=== PATIENT | male | born 1970 ===

== ENCOUNTER 2024-06-30 14:54 | Inpatient (IN) | payer SELFPAY ==
[~2024-06-30] VITALS: Ht 162.6 cm; Wt 79.7 kg
--- NOTE | 2024-06-30 15:04 | ECG ---
[facility] Test Date: 2024-06-30 Test Time: 15:01:01 Pat Name: ARNIE LEE Department: ER Room: 0245T Gender: M [employer] Truck Crane Operator: ANGELIQUE : 1970 Requested By: MEGGAN RODRÍGUEZ Order Number: [id number] Reading MD: Shaan Mason Measurements Intervals [place] Rate: 104 P: 56 [place]: 133 QRS: 57 QRSD: 94 T: 16 QT: 349 QTc: 459 Interpretive Statements Sinus tachycardia Baseline wander in lead(s) III,aVF Electronically Signed On 07-03-2024 8:50:58 PST by Shaan Mason Please click the below link to view image of tracing.
[2024-06-30 15:16] LABS: Basophils # (auto) 0 10 ^3/uL (0-0.2); Basophils % (auto) 0.3 % (0.0-2.0); Eosinophils # (auto) 0.1 10 ^3/uL (0-0.8); Hematocrit 52.9 % (41.0-53.0); Hemoglobin 17.9 g/dL (13.5-17.5); Lymphocytes # (auto) 2.4 10 ^3/uL (0.4-5.4); Lymphocytes % (auto) 24.9 % (10.0-50.0); Mean Corpuscular Hemoglobin 31.5 pg (28.0-32.0); Mean Corpuscular Hgb Conc. 33.8 g/dL (32.0-36.0); Mean Corpuscular Volume 93.1 fL (80.0-100.0); Monocytes # (auto) 0.4 10 ^3/uL (0-1.3); Monocytes % (auto) 4.5 % (0.0-12.0); Neutrophils # (auto) 6.6 10 ^3/uL (1.6-8.6); Neutrophils % (auto) 69.3 % (37.0-80.0); Nucleated Red Blood Cells % 0.1 %; Platelet Count (auto) 191 10^3/uL (140-450); Red Blood Cells 5.68 10^6/uL (4.5-5.90); Red Cell Distribution Width 13.3 % (11.8-14.3); White Blood Cell 9.6 10^3/uL (4.4-10.8)
--- NOTE | 2024-06-30 15:23 | DVH ---
CLINICAL INFORMATION: 54 years old, Male; chest pain. TECHNIQUE: Single AP portable chest radiograph was obtained. COMPARISON: None FINDINGS: Lungs: Clear. Cardiac: Heart size is within normal limits. Pulmonary vasculature: Unremarkable. Mediastinum/romaine: Unremarkable. Bones: No acute osseous abnormality identified. Other: No other significant findings. IMPRESSION: No evidence of acute disease in the chest.
[2024-06-30 15:36] LABS: Alanine Aminotransferase 23 U/L (7-40); Albumin 4.7 g/dL (3.2-4.8); Anion Gap 8 (5-15); Aspartate Aminotransferase 20 U/L (13-40); BUN/Creatinine Ratio 18.6 (10.0-20.0); Bilirubin, Total 0.8 mg/dL (0.2-1.0); Blood Urea Nitrogen 16 mg/dL (9-23); Calcium 9.8 mg/dL (8.7-10.4); Carbon Dioxide 29 mmol/L (20-31); Chloride 99 mmol/L (98-107); Magnesium 1.9 mg/dL (1.6-2.6); Potassium 4.2 mmol/L (3.5-5.1); Sodium 136 mmol/L (136-145); Total Protein 6.6 g/dL (5.7-8.2)
[2024-06-30 15:42] LABS: Alkaline Phosphatase 118 U/L (46-116); Glucose 322 mg/dL (74-106)
--- NOTE | 2024-06-30 16:04 | ED.PDOC ---
History of Present Illness HPI Comments 54-year-old male presents with a chief complaint of chest pain x 4 weeks intermittently. Patient reports that his pain is localized to his left chest wall, radiates down his arms, is intermittent in timing, and rates his pain a 6/10. Patient denies any injuries or trauma prior to onset of symptoms. Patient mentions that the pain started off spontaneously and he has not seen a doctor for this in the past x 4 weeks. No other symptoms or modifying factors present at this time. Chief Complaint: Chest Pain Time Seen by MD: 15:50 Primary Care Provider: none Reviewed Notes: Medications, Allergies Allergies: Coded Allergies: NO KNOWN ALLERGIES (Unverified , 06/30/24) Information Source: Patient Mode of Arrival: Ambulatory Severity: Moderate Timing: Weeks Duration: Intermittent Prehospital treatment: None Past Medical History PAST MEDICAL HISTORY: Denies Surgical History: Denies all surgeries Family History Family History: Reviewed,noncontributory to illness Social History Smoker: Non-Smoker Alcohol: Denies ETOH Use Drugs: Denies Drug Use Lives In: Home Constitutional: denies: chills, diaphoresis, fatigue, fever, malaise, sweats, weakness, others EENTM: denies: blurred vision, double vision, ear bleeding, ear discharge, ear drainage, ear pain, ear ringing, eye pain, eye redness, hearing loss, mouth pain, mouth swelling, nasal discharge, nose bleeding, nose congestion, nose pain, photophobia, tearing, throat pain, throat swelling, voice changes, others Respiratory: denies: cough, hemoptysis, orthopnea, SOB at rest, shortness of breath, SOB with excertion, stridor, wheezing, others Cardiovascular: reports: chest pain; denies: dizzy spells, diaphoresis, Dyspnea on exertion, edema, irregular heart beat, left arm pain, lightheadedness, palpitations, PND, syncope, others Gastrointestinal: denies: abdomen distended, abdominal pain, blood streaked bowels, constipated, diarrhea, dysphagia, difficulty swallowing, hematemesis, melena, nausea, poor appetite, poor fluid intake, rectal bleeding, rectal pain, vomiting, others Genitourinary: denies: burning, dysuria, flank pain, frequency, hematuria, incontinence, penile discharge, penile sore, pain, testicle pain, testicle swelling, urgency, others Neurological: denies: dizziness, fainting, headache, left sided numbness, left sided weakness, numbness, paresthesia, pre-existing deficit, right sided numbness, right sided weakness, seizure, speech problems, tingling, tremors, weakness, others Musculoskeletal: denies: back pain, gout, joint pain, joint swelling, muscle pain, muscle stiffness, neck pain, others Integumetry: denies: bruises, change in color, change in hair/nails, dryness, laceration, lesions, lumps, rash, wounds, others Allergic/Immunocompromised: denies: Difficulty Healing, Frequent Infections, Hives, Itching, others Hematologic/Lymphatic: denies: anemia, blood clots, easy bleeding, easy bruising, swollen glands, others Endocrine: denies: excessive hunger, excessive sweating, excessive thirst, excessive urination, flushing, intolerance to cold, intolerance to heat, unexplained weight gain, unexplained weight loss, others Psychiatric: denies: anxiety, bipolar disorder, depression, hopeless, panic disorder, schizophrenia, sleepless, suicidal, others All Other Systems: Reviewed and Negative Physical Exam General Appearance: No Apparent Distress, Normal HEENT: Normal ENT Inspection, Pharynx Normal, TMs Normal Neck: Full Range of Motion, Non-Tender, Normal, Normal Inspection Respiratory: Chest Non-Tender, Lungs Clear, No Accessory Muscle Use, No Respiratory Distress, Normal Breath Sounds Cardiovascular: No Edema, No JVD, No Murmur, No Gallop, Normal Peripheral Pulses, Regular Rate/Rhythm Breast Exam: Deferred Gastrointestinal: No Organomegaly, Non Tender, No Pulsatile Mass, Normal Bowel Sounds, Soft Genitalia: Deferred Pelvic: Deferred Rectal: Deferred Extremities: No calf tenderness, Normal capillary refill, Normal inspection, Normal range of motion, Non-tender, No pedal edema Musculoskeletal : Apperance: Normal Neurologic: Alert, network project manager II-XII nml as Tested, No Motor Deficits, Normal Affect, Normal Mood, No Sensory Deficits Cerebellar Function: Normal Reflexes: Normal Skin: Dry, Normal Color, Warm Lymphatic: No Adenopathy Was a procedure done? Was a procedure done?: No Differential Dx Considerations may include: Differential diagnosis includes but not limited to: angina, DKA, hyperosmolar, myocardial infarction, pulmonary embolus, pleurisy, musculoskeletal etiology and others X-Ray, Labs, Meds, VS Vital Signs Date Time Temp Pulse Resp B/P (MAP) Pulse Ox O2 Delivery O2 Flow Rate FiO2 06/30/24 15:57 92 06/30/24 15:05 98.2 110 16 152/97 (115) 95 06/30/24 15:01 104 Lab Test 06/30/24 15:56 06/30/24 15:06 Range/Units Troponin I High Sensitivity < 3 L < 3 L </=54 ng/L White Blood Count 9.6 4.4-10.8 10^3/uL Red Blood Count 5.68 4.5-5.90 10^6/uL Hemoglobin 17.9 H 13.5-17.5 g/dL Hematocrit 52.9 41.0-53.0 % Mean Corpuscular Volume 93.1 80.0-100.0 fL Mean Corpuscular Hemoglobin 31.5 28.0-32.0 pg Mean Corpuscular Hemoglobin Concent 33.8 32.0-36.0 g/dL Red Cell Distribution Width 13.3 11.8-14.3 % Platelet Count 191 140-450 10^3/uL Mean Platelet Volume 9.3 6.9-10.8 fL Neutrophils (%) (Auto) 69.3 37.0-80.0 % Lymphocytes (%) (Auto) 24.9 10.0-50.0 % Monocytes (%) (Auto) 4.5 0.0-12.0 % Eosinophils (%) (Auto) 1.0 0.0-7.0 % Basophils (%) (Auto) 0.3 0.0-2.0 % Neutrophils # (Auto) 6.6 1.6-8.6 10 ^3/uL Lymphocytes # (Auto) 2.4 0.4-5.4 10 ^3/uL Monocytes # (Auto) 0.4 0-1.3 10 ^3/uL Eosinophils # (Auto) 0.1 0-0.8 10 ^3/uL Basophils # (Auto) 0 0-0.2 10 ^3/uL Nucleated Red Blood Cells 0.1 % Sodium Level 136 136-145 mmol/L Potassium Level 4.2 3.5-5.1 mmol/L Chloride Level 99 98-107 mmol/L Carbon Dioxide Level 29 20-31 mmol/L Anion Gap 8 5-15 Blood Urea Nitrogen 16 9-23 mg/dL Creatinine 0.86 0.700-1.30 mg/dL Glomerular Filtration Rate Calc 104 >90 mL/min BUN/Creatinine Ratio 18.6 10.0-20.0 Serum Glucose 322 H 74-106 mg/dL Calcium Level 9.8 8.7-10.4 mg/dL Magnesium Level 1.9 1.6-2.6 mg/dL Total Bilirubin 0.8 0.2-1.0 mg/dL Aspartate Amino Transferase (AST) 20 13-40 U/L Alanine Aminotransferase (ALT) 23 7-40 U/L Alkaline Phosphatase 118 H 46-116 U/L B-Type Natriuretic Peptide 16.15 0-100 pg/mL Total Protein 6.6 5.7-8.2 g/dL Albumin 4.7 3.2-4.8 g/dL Time of 1ST Reevaluation: 16:20 Reevaluation 1ST: Unchanged Time of 2ND Reevaluation: 16:56 Reevaluation 2ND: Unchanged Patient Education/Counseling: Diagnosis, Treatment, Prognosis Family Education/Counseling: Diagnosis, Treatment, Prognosis Departure 1 Departure Time of Disposition: 16:51 Impression: Primary Impression: New onset type 2 diabetes mellitus Additional Impressions: Intermediate coronary syndrome Hyperglycemia Disposition: 09 ADMITTED INPATIENT Admit to: Tele Condition: Guarded Discharged With: Self Critical Care Note Critical Care Time?: Yes (45 min-critical care time only) Critical care comment: Total critical care time: Approximately 36 minutes Due to a high probability of clinically significant, life threatening deterioration, the patient required my highest level of preparedness to intervene emergently and I personally spent this critical care time directly and personally managing the patient. This critical care time included obtaining a history; examining the patient; pulse oximetry; ordering and review of studies; arranging urgent treatment with development of a management plan; evaluation of patient's response to treatment; frequent reassessment; and, discussions with other providers. This critical care time was performed to assess and manage the high probability of imminent, life-threatening deterioration that could result in multi-organ failure. It was exclusive of separately billable procedures and treating other patients. Stability Stability form required: No I personally scribed for MEGGAN RODRÍGUEZ MD ([email or web address]) on 06/30/24 at 16:04. Electronically submitted by Jamar Plata ([email or web address]). MEGGAN RODRÍGUEZ MD Jun 30, 2024 16:04
[2024-06-30 17:00] VITALS: PULSE 101; RESP 18; O2SAT 97
[2024-06-30] MEDS: SODIUM CHLORIDE 0.9% 1,000 ML IV ONE (17:10)
[2024-06-30] MEDS: ASPirin-EC 81 mg tab PO ONE (17:11)
[2024-06-30] MEDS: InsuLIN REG 1unit/0.01ml Soln (100units/ml) IV ONE (17:11)
[2024-06-30] MEDS ORDERED: NITROGLYCERIN 0.4 MG SL TAB SL PRN (19:15)
[2024-06-30] MEDS ORDERED: ONDANSETRON HCL 4 MG/2 ML VIAL IV PRN (19:15)
[2024-06-30] MEDS ORDERED: DEXTROSE (50%) 50ML SYRG IV PRN (19:15)
[2024-06-30] MEDS ORDERED: MORPHINE SULFATE INJ 2 MG/ml SYRG IV PRN (19:15)
--- NOTE | 2024-06-30 20:50 | DVHHP2 ---
History of Present Illness Reason for Visit: Chest pain History of Present Illness 54-year-old male presents for evaluation of chest pain. The patient reports a four week history of left-sided sharp chest pain that radiates to his left arm causing numbness. He states that his symptoms were intermittent. He states that today symptoms became more constant and severe. Denies shortness or breath no nausea or vomiting. Currently rates the pain at 5/10 intensity. No other acute complaints reported. Past Medical History Denies Past Surgical History Denies Family History Noncontributory Smoke: No ALCOHOL: none Drugs: None Lives: with Family Review of Systems Review of Systems Review of systems are currently negative otherwise addressed in HPI Allergies: Coded Allergies: NO KNOWN ALLERGIES (Unverified , 06/30/24) Medications Current Medications Medications Dose Ordered Sig/Matt Route Start Time Stop Time Status Last Admin Dose Admin Diagnostic Test (Pha) 1 strip ACHS 06/30/24 22:00 Insulin Human Regular ACHS SC 06/30/24 22:00 Dextrose 50 ml UD PRN IV 06/30/24 19:15 Ondansetron HCl 4 mg Q4HP PRN IV 06/30/24 19:15 Acetaminophen 650 mg Q6HP PRN PO 06/30/24 19:15 Nitroglycerin 0.4 mg Q5MINP PRN SL 06/30/24 19:15 Morphine Sulfate 2 mg Q30M PRN IV 06/30/24 19:15 Exam Vital Signs Vital Signs Date Time Temp Pulse Resp B/P (MAP) Pulse Ox O2 Delivery O2 Flow Rate FiO2 06/30/24 19:45 97.9 92 16 141/90 (107) 97 97.9 06/30/24 18:42 Room Air 06/30/24 17:00 0 21 Exam Gen: 54-year-old male in mild distress Skin: Warm, dry, normal color and texture, no rash. HEENT: Normocephalic atraumatic, mucous membranes moist and pink. Neck: Cervical and supraclavicular nodes normal without enlargement, trachea is midline, thyroid gland is normal without masses. Pulmonary: Diminished breath sounds Cardiac: Regular rate and rhythm. No murmur Abdomen: Soft, nontender, nondistended, bowel sounds present all 4 quadrants, no guarding, no rigidity, no organomegaly. Extremities: No cyanosis, clubbing, no edema Neuro: Cranial nerves II through XII grossly intact, normal affect and speech, no focal motor deficits. Labs/Xrays ORDERING PHYSICIAN: MEGGAN RODRÍGUEZ MD PROCEDURE(s): CXRP - CHEST PORTABLE REASON: CP ORDER NUMBER(s): [id number], ACCESSION NUMBER(s): [id number] CLINICAL INFORMATION: 54 years old, Male; chest pain. TECHNIQUE: Single AP portable chest radiograph was obtained. COMPARISON: None FINDINGS: Lungs: Clear. Cardiac: Heart size is within normal limits. Pulmonary vasculature: Unremarkable. Mediastinum/romaine: Unremarkable. Bones: No acute osseous abnormality identified. Other: No other significant findings. IMPRESSION: No evidence of acute disease in the chest. Labs Test 06/30/24 17:07 06/30/24 15:56 06/30/24 15:06 Range/Units POC Glucose 366 H 70-106 mg/dl Troponin I High Sensitivity < 3 L </=54 ng/L White Blood Count 9.6 4.4-10.8 10^3/uL Red Blood Count 5.68 4.5-5.90 10^6/uL Hemoglobin 17.9 H 13.5-17.5 g/dL Hematocrit 52.9 41.0-53.0 % Mean Corpuscular Volume 93.1 80.0-100.0 fL Mean Corpuscular Hemoglobin 31.5 28.0-32.0 pg Mean Corpuscular Hemoglobin Concent 33.8 32.0-36.0 g/dL Red Cell Distribution Width 13.3 11.8-14.3 % Platelet Count 191 140-450 10^3/uL Mean Platelet Volume 9.3 6.9-10.8 fL Neutrophils (%) (Auto) 69.3 37.0-80.0 % Lymphocytes (%) (Auto) 24.9 10.0-50.0 % Monocytes (%) (Auto) 4.5 0.0-12.0 % Eosinophils (%) (Auto) 1.0 0.0-7.0 % Basophils (%) (Auto) 0.3 0.0-2.0 % Neutrophils # (Auto) 6.6 1.6-8.6 10 ^3/uL Lymphocytes # (Auto) 2.4 0.4-5.4 10 ^3/uL Monocytes # (Auto) 0.4 0-1.3 10 ^3/uL Eosinophils # (Auto) 0.1 0-0.8 10 ^3/uL Basophils # (Auto) 0 0-0.2 10 ^3/uL Nucleated Red Blood Cells 0.1 % Sodium Level 136 136-145 mmol/L Potassium Level 4.2 3.5-5.1 mmol/L Chloride Level 99 98-107 mmol/L Carbon Dioxide Level 29 20-31 mmol/L Anion Gap 8 5-15 Blood Urea Nitrogen 16 9-23 mg/dL Creatinine 0.86 0.700-1.30 mg/dL Glomerular Filtration Rate Calc 104 >90 mL/min BUN/Creatinine Ratio 18.6 10.0-20.0 Serum Glucose 322 H 74-106 mg/dL Hemoglobin A1c 11.1 H <5.7 % A1C Calcium Level 9.8 8.7-10.4 mg/dL Magnesium Level 1.9 1.6-2.6 mg/dL Total Bilirubin 0.8 0.2-1.0 mg/dL Aspartate Amino Transferase (AST) 20 13-40 U/L Alanine Aminotransferase (ALT) 23 7-40 U/L Alkaline Phosphatase 118 H 46-116 U/L B-Type Natriuretic Peptide 16.15 0-100 pg/mL Total Protein 6.6 5.7-8.2 g/dL Albumin 4.7 3.2-4.8 g/dL Assessment/Plan Assessment/Plan Assessment Chest pain out ACS New onset diabetes mellitus Plan Admit the patient to [facility] to the hospitalist Cardiology consultation Echocardiogram pending Continue treatment per orders. Plan discussed with: Patient My Orders Orders - JOANNA WICK Procedure Category Date Status Time Consistent DIET 07/01/24 Transmitted [facility]Diabetes Breakfast Basic Metabolic Panel LAB 07/01/24 Verified 04:00 Glucose Blood PHA 06/30/24 In Process (Accu-Chek Comfort 22:00 Insulin R (Human) PHA 06/30/24 In Process (Insulin R) 22:00 Dextrose 50% Syringe PHA 06/30/24 In Process 19:15 Admit ADMIT 06/30/24 Transmitted 19:06 Ondansetron Hcl PHA 06/30/24 In Process (Zofran) 19:15 Echo 2d Mode Cardiac US 06/30/24 Logged DOP 19:06 Condition: Stable [facility] 06/30/24 In Process 19:06 Acetaminophen Tablet [facility] 06/30/24 In Process (Tylenol Tablet) 19:15 Bedrest With Bathroom [facility] 06/30/24 In Process Privileg 19:06 Nitroglycerin [facility] 06/30/24 In Process Sublingual (Ntrostat 19:15 Morphine Sulfate PH[facility] 06/30/24 In Process Injection 19:15 Stat Ekg For Chest [facility] 06/30/24 In Process Pain 19:06 Notify Md Of Changes [facility] 06/30/24 In Process From Base 19:06 Line Service Attendant For [facility] 06/30/24 In Process 24 Hours 19:06 Emergency Dysrhythmia [facility] 06/30/24 In Process Protocol 19:06 Rhythm Strips Once [facility] 06/30/24 In Process Every Shift 19:06 Oxygen By Nasal RT 06/30/24 Transmitted Cannula 19:06 Date of Service: Jun 30, 2024 Billing Provider: JOANNA WICK Common Visit Codes: [id number] INP/OBS CARE (HIGH) JOANNA WICK Jun 30, 2024 20:50
[2024-06-30] MEDS: ACCU-CHEK COMFORT CURVE STRIP VI SCH (22:33)
[2024-06-30] MEDS: InsuLIN REG 1unit/0.01ml Soln (100units/ml) SC SCH (22:34)
[2024-06-30 23:09] VITALS: BP 126/81; PULSE 83; RESP 18; TEMP 97.6; O2SAT 97
[2024-07-01] VITALS (8 sets, daily range): BP systolic 99–126; BP diastolic 57–81; PULSE 83–99; RESP 16–19; TEMP 97.6–99; O2SAT 94–97
[2024-07-01 07:24] LABS: Chloride 104 mmol/L (98-107); Potassium 3.9 mmol/L (3.5-5.1); Sodium 138 mmol/L (136-145)
[2024-07-01 07:25] LABS: Anion Gap 5 (5-15); Calcium 9.2 mg/dL (8.7-10.4); Carbon Dioxide 29 mmol/L (20-31)
[2024-07-01 07:30] LABS: BUN/Creatinine Ratio 14.7 (10.0-20.0); Blood Urea Nitrogen 11 mg/dL (9-23)
[2024-07-01 07:42] LABS: Glucose 224 mg/dL (74-106)
--- NOTE | 2024-07-01 09:42 | ECG ---
[facility] Test Date: 2024-06-30 Test Time: 15:57:37 Pat Name: ARNIE LEE Department: ER Room: 0245T A Gender: M Respiratory Therapist: SAVITA : 1970 Requested By: MEGGAN RODRÍGUEZ Order Number: [id number] Reading MD: Shaan Mason Measurements Intervals [place] Rate: 92 P: 73 [place]: 139 QRS: 77 QRSD: 87 T: 17 QT: 341 QTc: 422 Interpretive Statements Sinus rhythm Electronically Signed On 07-03-2024 8:51:10 PST by Shaan Mason Please click the below link to view image of tracing.
[2024-07-01] MEDS: ACETAMINOPHEN 325 MG TAB PO PRN (10:01)
--- NOTE | 2024-07-01 12:19 | DVHSR ---
APPROVED REPORT EXAM: Two-dimensional and M-mode echocardiogram with Doppler and color Doppler. Blood Pressure: 124/75 mmHg INDICATION Chest Pain RISK FACTORS Height: 5'4", Weight: 175 DIMENSIONS LVDd4.2 (3.8-5.7cm)LA (2D)4.0 (1.9-4.0cm)Aortic Root (2.0-3.7cm) LVDs2.9 (2.5-4.0cm)LA (MM) (1.9-4.0cm)Aortic Cusp Exc (1.5-2.0cm) EF (%) 60.0 (55-70%)Rt. Atrium (1.9-4.0cm)Asc. Aorta cm Mitral Valve MitralMitral Stenosis E/A ratio0.02D MVAcm2 Aortic Valve Aortic ValveAortic Stenosis V10.91m/Ml Mean GR.4mmHg V21.20m/Ml Peak GR.6mmHg LVOT Diameter2.0 (1.8-2.4cm)Doppler AVA2.38cm2 AI P 1/2 Zxfu022.90ms LEFT VENTRICLE The left ventricle is of normal size. Wall thickness is likely normal. Ejection fraction is normal and is estimated at 60-65%. There is no gross wall motion abnormalities but endocardial definition i s suboptimal. Diastolic function is not well assessed. RIGHT VENTRICLE Not well visualized. Likely of normal size and systolic function. ATRIA Both atria are likely of normal size. Interatrial septum appears to be normal. MITRAL VALVE Normal structure and function. No significant mitral regurgitation. PULMONIC VALVE Not visualized. TRICUSPID VALVE Not well visualized. PA systolic pressure isn't adequately estimated. AORTIC VALVE Not well visualized. There is trace regurgitation. No evidence of stenosis. GREAT VESSELS Not well visualized. PERICARDIAL EFFUSION No significant effusion. IVC is not visualized. Other Information Quality : Technically LimitedRhythm : Technically limited study due to body habitus. Conclusion The study is technically limited. Normal left ventricular size and systolic function. Ejection fraction is estimated at 60-65%. Likely normal right ventricular size and systolic function. No evidence of hemodynamically significant valvular disease. No significant pericardial effusion. PA systolic pressure isn't adequately estimated.
[2024-07-01] MEDS ORDERED: SITA50TA28 PO ×2 (13:30→18:47)
--- NOTE | 2024-07-01 17:12 | DVHDSRES ---
Discharge Summary Date of Admission Resident Creating Document: ILSA AVLAREZ RESIDENT Jun 30, 2024 at 19:06 Date of Discharge: Jul 01, 2024 Admitting Diagnosis chest pain ruled out ACS Labs/Diagnostic Data: Laboratory Results Test 07/01/24 11:48 07/01/24 06:32 06/30/24 15:56 06/30/24 15:06 POC Glucose 266 mg/dl (70-106) Sodium Level 138 mmol/L (136-145) Potassium Level 3.9 mmol/L (3.5-5.1) Chloride Level 104 mmol/L (98-107) Carbon Dioxide Level 29 mmol/L (20-31) Anion Gap 5 (5-15) Blood Urea Nitrogen 11 mg/dL (9-23) Creatinine 0.75 mg/dL (0.700-1.30) Glomerular Filtration Rate Calc 108 mL/min (>90) BUN/Creatinine Ratio 14.7 (10.0-20.0) Serum Glucose 224 mg/dL (74-106) Calcium Level 9.2 mg/dL (8.7-10.4) Troponin I High Sensitivity < 3 ng/L (</=54) White Blood Count 9.6 10^3/uL (4.4-10.8) Red Blood Count 5.68 10^6/uL (4.5-5.90) Hemoglobin 17.9 g/dL (13.5-17.5) Hematocrit 52.9 % (41.0-53.0) Mean Corpuscular Volume 93.1 fL (80.0-100.0) Mean Corpuscular Hemoglobin 31.5 pg (28.0-32.0) Mean Corpuscular Hemoglobin Concent 33.8 g/dL (32.0-36.0) Red Cell Distribution Width 13.3 % (11.8-14.3) Platelet Count 191 10^3/uL (140-450) Mean Platelet Volume 9.3 fL (6.9-10.8) Neutrophils (%) (Auto) 69.3 % (37.0-80.0) Lymphocytes (%) (Auto) 24.9 % (10.0-50.0) Monocytes (%) (Auto) 4.5 % (0.0-12.0) Eosinophils (%) (Auto) 1.0 % (0.0-7.0) Basophils (%) (Auto) 0.3 % (0.0-2.0) Neutrophils # (Auto) 6.6 10 ^3/uL (1.6-8.6) Lymphocytes # (Auto) 2.4 10 ^3/uL (0.4-5.4) Monocytes # (Auto) 0.4 10 ^3/uL (0-1.3) Eosinophils # (Auto) 0.1 10 ^3/uL (0-0.8) Basophils # (Auto) 0 10 ^3/uL (0-0.2) Nucleated Red Blood Cells 0.1 % Hemoglobin A1c 11.1 % A1C (<5.7) Magnesium Level 1.9 mg/dL (1.6-2.6) Total Bilirubin 0.8 mg/dL (0.2-1.0) Aspartate Amino Transferase (AST) 20 U/L (13-40) Alanine Aminotransferase (ALT) 23 U/L (7-40) Alkaline Phosphatase 118 U/L (46-116) B-Type Natriuretic Peptide 16.15 pg/mL (0-100) Total Protein 6.6 g/dL (5.7-8.2) Albumin 4.7 g/dL (3.2-4.8) Other Laboratory Tests 07/01/24 06:32 06/30/24 15:06 Brief Hx & Hospital Course: A 54-year-old male with a BMI of 30.2 kg/m presented with a four-week history of left-sided, sharp chest pain radiating to the left arm, associated with numbness, relieved with movement. No associated shortness of breath, nausea, or vomiting was reported. His symptoms acutely worsened on the day of admission. Laboratory evaluation revealed new-onset diabetes mellitus. An echocardiogram was performed, showing a technically limited study due to body habitus but revealed a normal ejection fraction (EF) of 6065%, no significant valvular abnormalities, and no pericardial effusion. ACS (acute coronary syndrome) was ruled out during hospitalization, ekg and troponins normal. Insulin therapy and glucose control measures were initiated. The patient was managed with supportive care and appropriate monitoring during his hospital stay. Discharge Plan: The patient is being discharged in stable condition with follow-up instructions to continue monitoring glucose levels and outpatient management of new-onset diabetes mellitus. He was prescribed Janumet for glycemic control. [facility] was recommended to reassess symptoms and ensure no progression of cardiovascular concerns. The patient was educated on lifestyle modifications, including weight management and dietary changes, to address risk factors for future cardiovascular events. He is advised to return to the ED for any recurrence of chest pain, shortness of breath, or other concerning symptoms. Gen: 54-year-old male Skin: Warm, dry, normal color and texture, no rash. HEENT: Normocephalic atraumatic, mucous membranes moist and pink. Neck: Cervical and supraclavicular nodes normal without enlargement, trachea is midline, thyroid gland is normal without masses. Pulmonary: clear lungs Cardiac: Regular rate and rhythm. No murmur Abdomen: Soft, nontender, nondistended, bowel sounds present all 4 quadrants, no guarding, no rigidity, no organomegaly. Extremities: No cyanosis, clubbing, no edema Neuro: Cranial nerves II through XII grossly intact, normal affect and speech, no focal motor deficits. Case discussed with Dr Wylie Time spent on care 23 min Operations or Procedures APPROVED REPORT EXAM: Two-dimensional and M-mode echocardiogram with Doppler and color Doppler. Blood Pressure: 124/75 mmHg INDICATION Chest Pain RISK FACTORS Height: 5'4", Weight: 175 DIMENSIONS LVDd 4.2 (3.8-5.7cm) LA (2D) 4.0 (1.9-4.0cm) Aortic Root (2.0- 3.7cm) LVDs 2.9 (2.5-4.0cm) LA (MM) (1.9-4.0cm) Aortic Cusp Exc (1.5- 2.0cm) EF (%) 60.0 (55-70%) Rt. Atrium (1.9-4.0cm) Asc. Aorta cm Mitral Valve Mitral Mitral Stenosis E/A ratio 0.0 2D MVA cm2 Aortic Valve Aortic Valve Aortic Stenosis V1 0.91m/s AO Mean GR. 4mmHg V2 1.20m/s AO Peak GR. 6mmHg LVOT Diameter 2.0 (1.8-2.4cm) Doppler DAMION 2.38cm2 AI P 1/2 Time 265.90ms LEFT VENTRICLE The left ventricle is of normal size. Wall thickness is likely normal. Ejection fraction is normal and is estimated at 60-65%. There is no gross wall motion abnormalities but endocardial definition is suboptimal. Diastolic function is not well assessed. RIGHT VENTRICLE Not well visualized. Likely of normal size and systolic function. ATRIA Both atria are likely of normal size. Interatrial septum appears to be normal. MITRAL VALVE Normal structure and function. No significant mitral regurgitation. PULMONIC VALVE Not visualized. TRICUSPID VALVE Not well visualized. PA systolic pressure isn't adequately estimated. AORTIC VALVE Not well visualized. There is trace regurgitation. No evidence of stenosis. GREAT VESSELS Not well visualized. PERICARDIAL EFFUSION No significant effusion. IVC is not visualized. Other Information Quality : Technically Limited Rhythm : Technically limited study due to body habitus. Conclusion The study is technically limited. Normal left ventricular size and systolic function. Ejection fraction is estimated at 60-65%. Likely normal right ventricular size and systolic function. No evidence of hemodynamically significant valvular disease. No significant pericardial effusion. PA systolic pressure isn't adequately estimated. Condition at Discharge: Stable Final Diagnosis/Problems List #Chest Pain due Musculoskeletal Pain #Ruled out ACS #Uncontrolled diabetes with Hyperglycemia #sirs without OD Discharge Disposition: Home Discharge Instruct/Medications Diet: Consistent carbohydrate Activity: Light activity Follow Up/Referral: [facility] Dr Odell carter Medications: see prescription Discharge Statement: "Patient was advised to return to the ER or call 911 if any headaches, dizziness, shortness of breath, chest pain, abdominal pain, bleeding, fevers, or worsening of medical condition. Patient was counseled about treatment plan, medications, possible side effects, patientverbalized understanding. All questions were answered to the best of my ability. This discharge took greater then 30 minutes in planning, reviewing documentation, counseling the patient, and discussing with other team members." ASSESSMENT ASSESSMENT Assessment Chest Pain Date of Service: Jul 01, 2024 Billing Provider: TAYLOR WYLIE MD Common Visit Codes: 36757-TCI/OBS DISCH DAY >30min ILSA ALVAREZ Jul 01, 2024 17:12 TAYLOR WYLIE MD Jul 03, 2024 16:15
[2024-07-01] MEDS ORDERED: INSULIN LANTUS (GLARGINE) 1 /0.01ml (100units/ml) SC SCH (22:00)
== END 2024-07-01 17:32 | disposition home or self-care (01) | DRG 313 ==
LOC: ER 14:54 → TELE 19:06 → TELE-EAST 22:59
PROVIDERS: ADMIT Student in an Organized Health Care Education/Training Program; ATTEND Student in an Organized Health Care Education/Training Program
DX: R07.89 Other chest pain (principal); I20.0 Unstable angina; R65.10 Systemic inflammatory response syndrome (SIRS) of non-infectious origin without acute organ dysfunction; E11.65 Type 2 diabetes mellitus with hyperglycemia
CPT/HCPCS: 36415; 71045; 80048; 80053; 82962; 83036; 83735; 83880; 84484; 85025; 93005; 93306; 99291; G0378; J1815